=== PATIENT | male | born 1945 | race Caucasian/White ===

== ENCOUNTER 2020-05-14 00:23 | Outpatient (CLI) | payer MEDICARE, SELFPAY ==
[2020-05-14 18:02] LABS: SARS-CoV-2 RNA PCR Negative
== END 2020-05-14 00:24 | disposition home or self-care (01) ==
LOC: ANHCOVIDDT 00:24
PROVIDERS: PCP Family Medicine; Visit Provider Internal Medicine Gastroenterology
DX: Z01.812 Encounter for preprocedural laboratory examination (principal); Z20.828 Contact with and (suspected) exposure to other viral communicable diseases
CPT/HCPCS: 87635; C9803; U0003

== ENCOUNTER 2020-05-17 00:28 | Day surgery (SDC) | payer MEDICARE, SELFPAY ==
[2020-05-11 10:03] VITALS: BMI 26.0
--- NOTE | 2020-05-17 07:10 | WPDANESEPPF ---
Anes - Initial Pre Proc Eval Procedure: Operation Date: 05/17/20 08:00 Proposed Procedures p Screening Colonoscopy - Nicola Chino MD Date/Time: 05/17/20 07:10 Surgeon: Nicola Chino MD Pre Op Diagnosis: fm hx colon polyp and fm hx colon ca Patient Data Age: 75 Gender: M Height: 5 ft 8 in Weight: 77.7 kg Allergies Allergy/AdvReac Type Severity Reaction Status Date / Time No Known Allergies Allergy Verified 05/17/20 07:00 Home Medications Medication Instructions Recorded Confirmed Type atorvastatin 10 mg PO DAILY 07/14/19 05/11/20 History ejfzlwur-uvl-PW-lycopen-lutein 1 tablet PO DAILY 07/14/19 05/11/20 History quinapril-hydrochlorothiazide 1 tablet PO DAILY 07/14/19 05/17/20 History [Accuretic] omeprazole magnesium [Prilosec OTC] 20 mg PO DAILY 07/15/19 05/11/20 History rivaroxaban [Xarelto] 20 mg PO DAILY 05/11/20 05/11/20 History Patient hx anesthesia problems: none Family hx anesthesia problems: none PMFSH Past Medical History Medical History History of DVT (deep vein thrombosis) Hypercholesterolemia Hypertension Paroxysmal atrial flutter Second degree AV block, Mobitz type II Syncope Family History Family History Mother Pacemaker CHF (congestive heart failure) Father Diabetes mellitus Sibling Atrial flutter Sibling Carcinoma of colon Sibling Malignant neoplasm of prostate Social History Social History Smoking status: Never smoker Alcohol intake: never Substance use: never Substance use type: does not use Living arrangements: with family Gender identity (if verbalized by the patient): Male Spiritual care concerns: No Agree to blood products: Yes Anes - Eval Final PreProcedure Day of Procedure 05/17/20 07:10 Patient weight: overweight Heart: regular rate and rhythm Lungs: clear to auscultation Airway: Mallampati scale class II Neurological: alert and oriented Last oral intake: >/= 8 hours ASA classification: III Emergent: no Anesthetic plan: proceed Anesthesia type and monitoring: general GIVS and standard monitoring Informed Consent: The patient's anesthetic plan and its attendant risks and benefits were discussed with the patient/family/POA. Questions were solicited and answers provided to the satisfaction of the patient/family/POA.
[2020-05-17 07:14] VITALS: BP 151/50; PULSE 68; RESP 18; TEMP 36.3; O2SAT 98
[2020-05-17] MEDS: LACTATED RINGERS 1,000 ML 150 ML IV CONT (07:22)
--- NOTE | 2020-05-17 08:00 | WPDGICN ---
Assessment and Plan Assessment and plan (1) Encounter for colonoscopy in patient with family history of colon cancer: Code(s): Z12.11 - Encounter for screening for malignant neoplasm of colon; Z80.0 - Family history of malignant neoplasm of digestive organs Status: Acute Assessment and Plan: Patient has a family history of colon cancer in 2 brothers in his mother there also colon polyps in the family. Plan is for surveillance colonoscopy now and at 5 year intervals in the future. (2) Family history of colonic polyps: Code(s): Z83.71 - Family history of colonic polyps Status: Acute GI Consult Note Consult date/time: 05/17/20 08:00 HPI: Jhony Sorto is a 75 year old male seen in evaluation at the request of Dr Kyle. Patient presents for screening colonoscopy. Patient's family history is significant for 2 brothers have had colon cancer in 1 brother has had colon polyps. Patient's mother appears to have had colon cancer and there appears to be tendency for this in her side of the family. Patient states that his own weight appetite bowel movements are normal. Denies abdominal pain. He has had no bleeding. His last exam 5 years ago was unremarkable. Review of Systems Review of Systems: All systems reviewed & are unremarkable except as noted in HPI and below PMFSH Past Medical History Medical History History of DVT (deep vein thrombosis) Hypercholesterolemia Hypertension Paroxysmal atrial flutter Second degree AV block, Mobitz type II Syncope Family History Family History Mother Pacemaker CHF (congestive heart failure) Father Diabetes mellitus Sibling Atrial flutter Sibling Carcinoma of colon Sibling Malignant neoplasm of prostate Social History Social History Smoking status: Never smoker Alcohol intake: never Substance use: never Substance use type: does not use Living arrangements: with family Gender identity (if verbalized by the patient): Male Spiritual care concerns: No Agree to blood products: Yes Meds Home Medications and Allergies Home Medications Medication Instructions Recorded Confirmed Type atorvastatin 10 mg PO DAILY 07/14/19 05/11/20 History gxzqvrzc-sfh-ZS-lycopen-lutein 1 tablet PO DAILY 07/14/19 05/11/20 History quinapril-hydrochlorothiazide 1 tablet PO DAILY 07/14/19 05/17/20 History [Accuretic] omeprazole magnesium [Prilosec OTC] 20 mg PO DAILY 07/15/19 05/11/20 History rivaroxaban [Xarelto] 20 mg PO DAILY 05/11/20 05/11/20 History Allergies Allergy/AdvReac Type Severity Reaction Status Date / Time No Known Allergies Allergy Verified 05/17/20 07:00 Vital Signs Vital Signs - 24 hr 05/17/20 07:14 Temperature 97.3 F L Pulse Rate 68 Respiratory Rate 18 Blood Pressure 151/50 H Pulse Oximetry 98 Exam Narrative: Exam Narrative: Physical exam reveals patient to be alert. Vital signs stable. HEENT exam unremarkable. Lungs are clear to auscultation and percussion. Heart is without murmur or extra sounds. Abdominal exam bowel sounds are present soft nontender with no organomegaly. Digital external rectal exam is normal.
[2020-05-17 08:31] VITALS: BP 90/37; PULSE 74; RESP 23; O2SAT 96
[2020-05-17 08:41] VITALS: BP 101/46; PULSE 61; RESP 17; O2SAT 98
[2020-05-17 08:51] VITALS: BP 114/47; PULSE 60; RESP 18; O2SAT 98
== END 2020-05-17 09:06 | disposition home or self-care (01) ==
PROVIDERS: PCP Family Medicine; Visit Provider Internal Medicine Gastroenterology
PROC: 0DJD8ZZ Inspection of Lower Intestinal Tract, Via Natural or Artificial Opening Endoscopic (ICD-10-PCS; CPT 45378; principal; 2020-05-17 08:00)
DX: Z12.11 Encounter for screening for malignant neoplasm of colon (principal); K63.5 Polyp of colon; K64.8 Other hemorrhoids; Z83.71 Family history of colonic polyps; Z80.0 Family history of malignant neoplasm of digestive organs; I10 Essential (primary) hypertension; I48.0 Paroxysmal atrial fibrillation; I44.1 Atrioventricular block, second degree; E78.00 Pure hypercholesterolemia, unspecified; Z86.718 Personal history of other venous thrombosis and embolism; Z79.01 Long term (current) use of anticoagulants
CPT/HCPCS: 45385; 88305; J2704; J7120

== ENCOUNTER 2020-10-18 08:15 | Outpatient (CLI) | payer MEDICARE, SELFPAY | END 2020-10-18 08:16 | disposition home or self-care (01) | LOC: ANHCOVIDVC 08:15 | PROVIDERS: PCP Family Medicine | DX: Z23 Encounter for immunization (principal) | CPT/HCPCS: 0001A; 91300 ==

== ENCOUNTER 2020-11-08 08:12 | Outpatient (CLI) | payer MEDICARE, SELFPAY | END 2020-11-08 08:13 | disposition home or self-care (01) | LOC: ANHCOVIDVC 08:12 | PROVIDERS: PCP Family Medicine | DX: Z23 Encounter for immunization (principal) | CPT/HCPCS: 0002A; 91300 ==

== ENCOUNTER 2022-08-17 11:07 | Outpatient (CLI) | payer MEDICARE, SELFPAY ==
--- NOTE | ~2022-08-17 | XR_ITS ---
EXAMINATION: XR lumbar spine 2-3V DATE: 08/17/2022 11:38 INDICATION: Back pain radiating down the left leg TECHNIQUE: Anteroposterior and lateral views of the lumbar spine, and cone-down lateral view of the l umbosacral junction were obtained. COMPARISON: None. FINDINGS: Lumbar dextrocurvature is noted. There is no fracture, dislocation, or subluxation. The ayaka tebral body heights are maintained. There is mild loss of intervertebral disc space height at L3-4, L 4-5, and L5-S1. Small degenerative osteophytes project from the anterior endplates of multiple verteb ral bodies. 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 Calcified atheros clerosis is noted. IMPRESSION: 1. Mild lumbar spondylosis without acute findings. Reviewed, dictated and finalized at location L. H DRESSER
== END 2022-08-17 11:08 | disposition home or self-care (01) ==
PROVIDERS: PCP Family Medicine; Visit Provider Family Medicine
DX: M54.32 Sciatica, left side (principal); M47.896 Other spondylosis, lumbar region
CPT/HCPCS: 72100

== ENCOUNTER 2024-05-20 16:04 | Outpatient (CLI) | payer MEDICARE, SELFPAY ==
--- NOTE | ~2024-05-20 | XR_ITS ---
EXAMINATION: XR chest 2V Exam Date/Time: 05/20/2024 16:09 CDT HISTORY: R05.9 - Cough, unspecified Comparison: 07/17/2019. RESULT: Lines, tubes, and devices: Left chest pacer with intact leads. Lungs and pleura: Clear. Cardiomediastinal silhouette: Stable. Other: No acute osseous or upper abdominal finding. IMPRESSION: No acute cardiopulmonary process. Reviewed, dictated and finalized at location K.
== END 2024-05-20 16:05 | disposition home or self-care (01) ==
PROVIDERS: PCP Family Medicine; Visit Provider Family Medicine
DX: R05.9 Cough, unspecified (principal)
CPT/HCPCS: 71046

== ENCOUNTER 2024-05-23 10:09 | Emergency (ER) | payer MEDICARE, SELFPAY ==
--- NOTE | ~2024-05-23 | XR_ITS ---
Clinical Indication: Weakness, fever PA and lateral views of the chest: Comparison: 05/20/2024 Findings: The lungs are clear, without evidence of focal consolidation or pleural effusion. Cardiome diastinal silhouette is stable, with pacemaker device. Bones and soft tissues are unremarkable. Impression: Clear lungs. Reviewed, dictated and finalized at location . Impression: Clear lungs.
[2024-05-23 10:14] VITALS: BP 145/68; PULSE 74; RESP 16; TEMP 36.4; O2SAT 98
--- NOTE | 2024-05-23 10:19 | ECG_ITS ---
Test Date: 2024-05-23 10:23:04 Measurements Intervals [place] Rate: 70 P: 104 [place]: 147 QRS: -83 QRSD: 174 T: 78 QT: 465 QTc: 502 Interpretive Statements ELECTRONIC VENTRICULAR PACEMAKER ABNORMAL RHYTHM ECG No previous ECG available for comparison Electronically Signed On 05-23-2024 10:43:42 CDT by Ramesh Latham M.D.
[2024-05-23 10:30] VITALS: PULSE 70
[2024-05-23 10:31] VITALS: BP 130/70; PULSE 70; RESP 16; O2SAT 98
[2024-05-23 10:37] LABS: Basophils Percent Auto 0.2 % (0.2-1.2); Eosinophils Percent Auto 0.2 % (0-4.4); Hematocrit 44.4 % (42.0-52.0); Hemoglobin 15.4 g/dL (14.0-18.0); Immature Granulocyte Absolute 0.02 K/mm3 (0.00-0.031); Immature Granulocyte Percent A 0.3 % (0-0.5); Lymphocytes Absolute Auto 0.72 K/mm3 (0.9-3.2); Lymphocytes Percent Auto 11.8 % (18.3-44.2); Mean Corpuscular HGB Conc 34.7 g/dl (32-36); Mean Corpuscular Hemoglobin 31.7 pg (26-34); Mean Corpuscular Volume 91.4 fl (80-100); Mean Platelet Volume 10.9 fl (7.4-10.4); Monocytes Absolute Auto 0.6 K/mm3 (0.1-0.6); Monocytes Percent Auto 10.2 % (2.6-8.5); Neutrophils Absolute Auto 4.7 K/mm3 (1.3-6.7); Neutrophils Percent Auto 77.3 % (45.5-73.1); Platelet Count Result 176 k/mm3 (150-375); Red Blood Count 4.86 M/mm3 (4.6-6.20); Red Cell Distribution Width 12.1 % (11.5-14.5); White Blood Count 6.1 K/mm3 (4.5-10.0)
[2024-05-23] MEDS: SODIUM CHLORIDE 0.9% IV 1,000 ML 999 ML IV CONT (10:37)
[2024-05-23 10:51] LABS: Alanine Aminotransferase 31 U/L (6-50); Albumin Level 4.3 g/dL (3.5-5.1); Alkaline Phosphatase 74 U/L (38-126); Anion Gap 11 mmol/L (4-12); Aspartate Amino Transferase 31 U/L (17-59); Bilirubin,Total 0.9 mg/dL (0.2-1.3); Blood Urea Nitrogen 19 mg/dL (9-20); Calcium 8.9 mg/dL (8.4-10.2); Carbon Dioxide 24 mmol/L (22-30); Chloride 99 mmol/L (98-107); Estimated CRCL calculation 56 ml/min; Estimated Glomerular Filt Rate > 60; Glucose 149 mg/dL (65-110); Potassium 3.7 mmol/L (3.4-5.0); Sodium 134 mmol/L (137-145)
[2024-05-23 11:28] LABS: Influenza A QL RT-PCR Negative (Negative); Influenza B QL RT-PCR Negative (Negative); RSV RNA, RT-PCR Negative (Negative); SARS-CoV-2 RNA PCR Positive (Negative)
[2024-05-23 11:31] VITALS: BP 132/55; PULSE 70; RESP 16; O2SAT 97
[2024-05-23 11:33] LABS: Add Urine Microscopic? NO; Appearance Urine Clear (Clear); Bilirubin Urine Negative (Negative); Blood Urine Negative (Negative); Color Urine Yellow (Yellow); Glucose Urine UA Negative (Negative); Ketones Urine Negative (Negative); Leukocyte Esterase Ur Negative LEU/UL (Negative); Nitrate Urine Negative (Negative); Protein Urine Negative (Negative); Specific Grav Ur 1.007 (1.001-1.035); Urobilinogen Urine 0.2 mg/dL (<2.0); pH Urine 6.5 (5.0-9.0)
[2024-05-23 11:45] VITALS: TEMP 36.5
--- NOTE | 2024-05-23 12:08 | ED.GENADULT ---
HPI - General Adult General Chief complaint: Unspecified Stated complaint: sent by PMD Time Seen by Provider: 05/23/24 10:14 Source: patient Mode of arrival: ambulatory Limitations: no limitations History of Present Illness HPI narrative: This is an 79-year-old male, with history of DVT and hypertension, who presents to the emergency department complaining of generalized weakness, headache, fevers and chills for the past 2 weeks. The patient denies any known sick contacts or recent travel. He states he was seen by his primary care doctor 3 days ago after worsening and was started on cefuroxime for an elevated white blood cell count. He has had some nonbloody diarrhea though denies nausea or vomiting. He has no other acute complaints. Related Data Home Medications Medication Instructions Recorded Confirmed yjbhonrq-nug-qtlcq acid 0.4 1 tablet PO DAILY 07/14/19 05/20/24 mg-lycopene 300 mcg-lutein 250 mcg tablet omeprazole magnesium 20 mg 20 mg PO DAILY 07/15/19 05/20/24 tablet,delayed release (Prilosec OTC) Allergies Allergy/AdvReac Type Severity Reaction Status Date / Time No Known Allergies Allergy Verified 05/23/24 10:24 Review of Systems Review of Systems: All systems reviewed & are unremarkable except as noted in HPI and below PMFSH Past Medical History Medical History Esophageal web History of DVT (deep vein thrombosis) Hypercholesterolemia Hypertension Paroxysmal atrial flutter Prediabetes Second degree AV block, Mobitz type II Syncope Family History Family History Mother Pacemaker CHF (congestive heart failure) Father Diabetes mellitus Sibling Atrial flutter Sibling Carcinoma of colon Sibling Malignant neoplasm of prostate Social History Social History Smoking status: Never smoker Second hand tobacco smoke exposure: No Alcohol intake: never Substance use: never Substance use type: does not use Do You Feel Safe in your Home?: Yes Lack of Transportation: No Lack of Food: Sometimes True Current Housing: I Have Housing Concerned About Future Housing: No Difficulty Paying Gas/Electric Bills: No Difficulty Paying for Meds: No Currently Unemployed: No Education: High School Diploma/GED Difficulty w/ Childcare or Family Care: No Living arrangements: with family Occupation/Education: retired Gender identity (if verbalized by the patient): Male Sexual Orientation (if Verbalized by the Patient): Straight or Heterosexual Spiritual care concerns: No Agree to blood products: Yes Exam Narrative: GENERAL: Well-developed, well-nourished, and in no acute distress. HEAD: Normocephalic, atraumatic. EYES: PERRLA and EOMI. ENT: Nares clear, no rhinorrhea or epistaxis. Mucous membranes moist. Oropharynx without tonsillar hypertrophy exudate or other lesions. CHEST: Clear to auscultation. No respiratory distress. No wheezes rales or rhonchi HEART: Regular rate and rhythm. No murmur heard. Normal peripheral pulses. ABDOMEN: Soft, nontender, nondistended, normal active bowel sounds. EXTREMITIES: Normal range of motion. No edema. SKIN: Warm, dry, no rash. NEURO: Alert and oriented x3. No focal deficit. Moving all 4 limbs spontaneously PSYCH: Normal mood and affect. Course Course Emergency Course: 12:10 - CBC unremarkable. Chemistries demonstrate mild hyponatremia with sodium of 134 and mild glucose elevation of 149 but is otherwise unremarkable. UA not concerning for urinary tract infection. Chest x-ray not concerning for pneumonia. EKG not concerning for acute ischemic changes. The patient tested positive for COVID and negative for influenza and RSV. Considering the worsening of his symptoms 3 days ago, Will start Paxlovid and recommend holding the Xarelto and having close p
[2024-05-23 12:31] VITALS: BP 109/61; PULSE 70; RESP 12; TEMP 36.6; O2SAT 96
== END 2024-05-23 12:25 | disposition home or self-care (01) ==
PROVIDERS: Emergency Provider Preventive Medicine Aerospace Medicine; PCP Family Medicine
DX: U07.1 COVID-19 (principal); R53.81 Other malaise; I10 Essential (primary) hypertension; I48.92 Unspecified atrial flutter; E78.00 Pure hypercholesterolemia, unspecified; R73.03 Prediabetes; Z86.718 Personal history of other venous thrombosis and embolism; Z79.01 Long term (current) use of anticoagulants; Z79.899 Other long term (current) drug therapy
CPT/HCPCS: 36415; 71046; 80053; 81003; 85025; 87637; 93005; 96360; 99284; J7030

== ENCOUNTER 2025-05-26 01:07 | Day surgery (SDC) | payer MEDICARE, SELFPAY ==
[2025-05-18 13:43] VITALS: BMI 25.8
--- NOTE | 2025-05-18 14:02 | PC.NURSE ---
Spoke with PATIENT regarding medication XARELTO. PATIENT verbalizes understanding that the last dose is to be taken on 05/22/2025 and the Endoscopist will instruct them when to restart after the procedure.
[2025-05-26 07:40] VITALS: BP 161/74; PULSE 70; RESP 70; TEMP 36.2; O2SAT 97; BMI 26.0
[2025-05-26] MEDS: LACTATED RINGERS 1,000 ML 150 ML IV CONT (07:59)
--- NOTE | 2025-05-26 08:21 | WPDANESEPPF ---
Anes - Initial Pre Proc Eval Procedure: Operation Date: 05/26/25 09:00 Proposed Procedures p Screening Colonoscopy - Romulo Le MD Date/Time: 05/26/25 08:21 Surgeon: Romulo Le MD Pre Op Diagnosis: Personal history of colon polyps/screening Patient Data Age: 80 Gender: M Height: 1.73 m Weight: 77.8 kg Last Vital Signs Temp 36.2 C L 05/26/25 07:40 Pulse 70 05/26/25 07:40 Resp 70 H 05/26/25 07:40 BP 161/74 H 05/26/25 07:40 Pulse Ox 97 05/26/25 07:40 O2 Del Method Room Air 05/26/25 07:40 Allergies Allergy/AdvReac Type Severity Reaction Status Date / Time No Known Allergies Allergy Verified 05/26/25 07:47 Home Medications ?Medication ?Instructions ?Recorded ?Confirmed ?Type gwixmban-yoc-uprfo acid 0.4 1 tablet PO DAILY 07/14/19 05/26/25 History mg-lycopene 300 mcg-lutein 250 mcg tablet omeprazole magnesium 20 mg 20 mg PO DAILY PRN REFLUX 07/15/19 05/18/25 History tablet,delayed release (Prilosec OTC) atorvastatin 10 mg tablet 10 mg PO DAILY #90 tabs 01/08/25 05/26/25 Rx lisinopril 20 1 tablet PO DAILY #90 tabs 01/08/25 05/18/25 Rx mg-hydrochlorothiazide 25 mg tablet rivaroxaban 20 mg tablet (Xarelto) 20 mg PO DAILY #90 tabs 01/08/25 05/26/25 Rx lisinopril 20 mg tablet 20 mg PO DAILY #90 tabs 02/09/25 05/26/25 Rx Patient hx anesthesia problems: none Family hx anesthesia problems: none Results Review: All pre-operative results and documents have been reviewed as part of the pre-operative evaluation. [facility] Past Medical History Medical History (Updated 05/25/25 @ 09:43 by Terry Ventura DO) GERD (gastroesophageal reflux disease) Pacemaker Esophageal web Prediabetes Hypercholesterolemia Paroxysmal atrial flutter History of DVT (deep vein thrombosis) Second degree AV block, Mobitz type II Syncope Hypertension Family History Family History Mother Pacemaker CHF (congestive heart failure) Father Diabetes mellitus Sibling Atrial flutter Sibling Carcinoma of colon Sibling Malignant neoplasm of prostate Social History Social History Smoking status: Never smoker Second hand tobacco smoke exposure: No Alcohol intake: never Substance use: never Substance use type: does not use Do You Feel Safe in your Home?: Yes Lack of Transportation: No Lack of Food: Sometimes True Current Housing: I Have Housing Concerned About Future Housing: No Difficulty Paying Gas/Electric Bills: No Difficulty Paying for Meds: No Currently Unemployed: No Education: High School Diploma/GED Difficulty w/ Childcare or Family Care: No Living arrangements: with family Occupation/Education: retired Gender identity (if verbalized by the patient): Male Sexual Orientation (if Verbalized by the Patient): Straight or Heterosexual Spiritual care concerns: No Agree to blood products: Yes Anes - Eval Final PreProcedure Day of Procedure 05/26/25 08:21 Patient weight: overweight Heart: regular rate and rhythm Lungs: clear to auscultation Airway: Mallampati scale class II Neurological: alert and oriented Last oral intake: >/= 8 hours ASA classification: III Emergent: no Anesthetic plan: proceed Anesthesia type and monitoring: general GIVS and standard monitoring Results Review: All pre-operative results and documents have been reviewed as part of the pre-operative evaluation. Informed Consent: The patient's anesthetic plan and its attendant risks and benefits were discussed with the patient/family/POA. Questions were solicited and answers provided to the satisfaction of the patient/family/POA.
--- NOTE | 2025-05-26 09:12 | PM.IMHP ---
H&P: HPI History of Present Illness Date/Time: 05/26/25 09:12 Chief Complaint: History of colon polyps Narrative: The patient has a history of colonic polyps, the last colonoscopy was 5 years ago. Review of Systems Review of Systems: All systems reviewed & are unremarkable except as noted in HPI and below [facility] Past Medical History Medical History (Updated 05/26/25 @ 09:13 by Romulo Le MD) GERD (gastroesophageal reflux disease) Pacemaker Esophageal web Prediabetes Hypercholesterolemia Paroxysmal atrial flutter History of DVT (deep vein thrombosis) Second degree AV block, Mobitz type II Syncope Hypertension Family History Family History Mother Pacemaker CHF (congestive heart failure) Father Diabetes mellitus Sibling Atrial flutter Sibling Carcinoma of colon Sibling Malignant neoplasm of prostate Social History Social History Smoking status: Never smoker Second hand tobacco smoke exposure: No Alcohol intake: never Substance use: never Substance use type: does not use Do You Feel Safe in your Home?: Yes Lack of Transportation: No Lack of Food: Sometimes True Current Housing: I Have Housing Concerned About Future Housing: No Difficulty Paying Gas/Electric Bills: No Difficulty Paying for Meds: No Currently Unemployed: No Education: High School Diploma/GED Difficulty w/ Childcare or Family Care: No Living arrangements: with family Occupation/Education: retired Gender identity (if verbalized by the patient): Male Sexual Orientation (if Verbalized by the Patient): Straight or Heterosexual Spiritual care concerns: No Agree to blood products: Yes Meds Home Medications and Allergies Home Medications ?Medication ?Instructions ?Recorded ?Confirmed ?Type nuxcwnju-iqd-fhbvv acid 0.4 1 tablet PO DAILY 07/14/19 05/26/25 History mg-lycopene 300 mcg-lutein 250 mcg tablet omeprazole magnesium 20 mg 20 mg PO DAILY PRN REFLUX 07/15/19 05/18/25 History tablet,delayed release (Prilosec OTC) atorvastatin 10 mg tablet 10 mg PO DAILY #90 tabs 01/08/25 05/26/25 Rx lisinopril 20 1 tablet PO DAILY #90 tabs 01/08/25 05/18/25 Rx mg-hydrochlorothiazide 25 mg tablet rivaroxaban 20 mg tablet (Xarelto) 20 mg PO DAILY #90 tabs 01/08/25 05/26/25 Rx lisinopril 20 mg tablet 20 mg PO DAILY #90 tabs 02/09/25 05/26/25 Rx Allergies Allergy/AdvReac Type Severity Reaction Status Date / Time No Known Allergies Allergy Verified 05/26/25 07:47 Vital Signs Vital Signs - 24 hr 05/26/25 07:40 Temperature 97.2 F L Pulse Rate 70 Respiratory Rate 70 H Blood Pressure 161/74 H Pulse Oximetry 97 Oxygen Delivery Room Air Exam Const: General: cooperative and healthy appearing Resp: Effort & Inspection: normal respiratory effort and able to speak in complete sentences Auscultation: clear to auscultation bilaterally Cardio: Rate: regular rate Rhythm: regular rhythm GI: Inspection: normal to inspection GI Palp: No No hepatosplenomegaly present Auscultation: normal bowel sounds Rectal Exam: deferred Skin: General skin exam: normal color Psych: Appearance: grossly normal Mental Status: mental status grossly normal Assessment and Plan Assessment and plan (1) History of colonic polyps: Code(s): Z86.0100 - Personal history of colon polyps, unspecified Status: Acute Assessment and Plan: The patient is deemed a good candidate for the procedure. Consent signed. Will proceed.
[2025-05-26 09:38] VITALS: BP 97/57; PULSE 61; RESP 17; O2SAT 95
[2025-05-26 09:48] VITALS: BP 108/60; PULSE 60; RESP 18; O2SAT 95
[2025-05-26 09:58] VITALS: BP 122/67; PULSE 60; RESP 18; O2SAT 96
== END 2025-05-26 10:05 | disposition home or self-care (01) ==
PROVIDERS: PCP Family Medicine; Referring Provider Family Medicine; Visit Provider Internal Medicine Gastroenterology
PROC: 0DJD8ZZ Inspection of Lower Intestinal Tract, Via Natural or Artificial Opening Endoscopic (ICD-10-PCS; CPT 45378; principal; 2025-05-26 09:00)
DX: Z12.11 Encounter for screening for malignant neoplasm of colon (principal); I10 Essential (primary) hypertension; K21.9 Gastro-esophageal reflux disease without esophagitis; R73.03 Prediabetes; E78.00 Pure hypercholesterolemia, unspecified; I48.0 Paroxysmal atrial fibrillation; I44.1 Atrioventricular block, second degree; Q27.33 Arteriovenous malformation of digestive system vessel; Z79.01 Long term (current) use of anticoagulants; Z95.0 Presence of cardiac pacemaker; Z86.0100 Personal history of colon polyps, unspecified; Z86.718 Personal history of other venous thrombosis and embolism; Z80.0 Family history of malignant neoplasm of digestive organs; Z80.42 Family history of malignant neoplasm of prostate; Z82.49 Family history of ischemic heart disease and other diseases of the circulatory system
CPT/HCPCS: G0105; J2003; J2704; J7120